=== PATIENT | male | born 1995 | race Caucasian/White ===

== ENCOUNTER 2018-08-08 15:05 | Emergency (ER) | payer OTHER ==
[2018-08-08 15:21] VITALS: BP 116/57; PULSE 67; TEMP 98.5; BMI 36.5
[2018-08-08] MEDS ORDERED: KETOROLAC TROMETHAMINE 30 MG/1 ML VIAL IM ONE (15:41)
[2018-08-08] MEDS ORDERED: KETOROLAC TROMETHAMINE 30 MG/1 ML VIAL ONE (15:44)
--- NOTE | 2018-08-08 15:46 | PDOC ---
History of Present Illness - General Chief Complaint: Injury Stated Complaint: FALL Time Seen by Provider: 08/08/18 15:13 History Source: Patient Exam Limitations: No Limitations - History of Present Illness Initial Comments: 08/08/18 15:42 22 year old with history of appendectomy presents with reports of back pain after fall onto back while walking down the steps today. Patient reports no head strike, no nausea, vomiting or loss of consciousness. Also states no bowel or bladder dysfunction or numbness and tingling in limbs. Occurred: reports: just prior to arrival Severity: reports: mild Pain Location: reports: back Method of Injury: Yes: fall Modifying Factors: improves with: immobilization Loss of Consciousness: no loss of consciousness Past History - Travel Traveled outside of the country in the last 30 days: Yes Close contact w/someone who was outside of country & ill: No - Past Medical History Allergies/Adverse Reactions: Allergies Allergy/AdvReac Type Severity Reaction Status Date / Time No Known Allergies Allergy Verified 08/08/18 15:15 Home Medications: Ambulatory Orders Ibuprofen 600 mg PO TID #21 tablet 08/08/18 Ibuprofen 600 mg PO TID #21 tablet 08/08/18 - Suicide/Smoking/Psychosocial Hx Smoking History: Never smoked Have you smoked in the past 12 months: No Information on smoking cessation initiated: No Hx Alcohol Use: No Drug/Substance Use Hx: No Trauma Specific PMHX - Complaint Specific PMHX Arthritis: No Back Injury: No Neck Injury: No Hx Sacro Iliac Joint Dysfunction: No Review of Systems - Review of Systems Able to Perform ROS?: Yes Is the patient limited Sinhala proficient: No Constitutional: No: Chills, Fever HEENTM: No: Nose Pain, Nose Congestion, Throat Pain Respiratory: No: Shortness of Breath, Stridor, Wheezing Cardiac (ROS): No: Lightheadedness, Chest Tightness ABD/GI: No: Poor Appetite, Poor Fluid Intake Musculoskeletal: Yes: Back Pain. No: Joint Pain, Muscle Pain Integumentary: No: Erythema Neurological: Yes: Numbness, Tingling. No: Paresthesia *Physical Exam - Vital Signs Last Vital Signs Temp Pulse Resp BP Pulse Ox 98.5 F 67 20 116/57 L 98 08/08/18 15:12 08/08/18 15:12 08/08/18 15:12 08/08/18 15:12 08/08/18 15:12 - Physical Exam General Appearance: Yes: Nourished, Appropriately Dressed HEENT: positive: TMs Normal, Pharynx Normal Neck: positive: Supple. negative: Lymphadenopathy (R), Lymphadenopathy (L) Respiratory/Chest: positive: Lungs Clear Cardiovascular: positive: Regular Rhythm, Regular Rate Musculoskeletal: negative: CVA Tenderness, CVA Tenderness (R), CVA Tenderness (L ) Extremity: positive: Normal Capillary Refill Neurologic: positive: Fully Oriented, Alert Medical Decision Making - Medical Decision Making 08/08/18 15:48 22 year old with history of appendectomy presents with reports of back pain after fall onto back while walking down the steps today. 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 D/c f/u with pmd of ortho with pain medication *DC/Admit/Observation/Transfer Diagnosis at time of Disposition: Back pain Qualifiers: Back pain location: thoracic back pain Chronicity: acute Back pain laterality: bilateral Qualified Code(s): M54.6 - Pain in thoracic spine - Discharge Dispostion Disposition: HOME Condition at time of disposition: Stable - Prescriptions Prescriptions: Ibuprofen 600 mg PO TID #21 tablet Ibuprofen 600 mg PO TID #21 tablet - Referrals Referrals: Lelo Garvey MD [Primary Care Provider] - - Patient Instructions Printed Discharge Instructions: DI for Low Back Pain Additional Instructions: Activity as tolerated Return to ed for numbness or tingling in lower limb or inability to hold urine or bowels - Post Discharge Activity Forms/Work/School Notes: Back to Work
== END 2018-08-08 18:38 | disposition home or self-care (01) ==
LOC: JERFT 15:05
PROC: 3E0233Z Introduction of Anti-inflammatory into Muscle, Percutaneous Approach (ICD-10-PCS; principal; 2018-08-08)
DX: M54.6 Pain in thoracic spine (principal); W10.8XXA Fall (on) (from) other stairs and steps, initial encounter; Y93.89 Activity, other specified; Y92.89 Other specified places as the place of occurrence of the external cause; Y99.8 Other external cause status
CPT/HCPCS: 72070-TC-FY; 72110-TC-FY; 96372; 99281-25

== ENCOUNTER 2020-02-20 17:45 | Emergency (ER) | payer OTHER ==
[2020-02-20 17:51] VITALS: BP 115/64; PULSE 76; TEMP 97.8; BMI 38.0
== END 2020-02-20 20:53 | disposition home or self-care (01) ==
LOC: JERFT 17:45
DX: H61.22 Impacted cerumen, left ear (principal); H92.02 Otalgia, left ear
CPT/HCPCS: 99282-25

== ENCOUNTER 2020-03-26 15:05 | Emergency (ER) | payer OTHER ==
[2020-03-26 15:36] VITALS: BMI 37.2
[2020-03-26] MEDS ORDERED: ACETAMINOPHEN 500 MG TABLET (FP) PO ONE (16:00)
[2020-03-26] MEDS ORDERED: IBUPROFEN 600 MG TABLET (FP) PO ONE (16:07)
[2020-03-26 17:26] VITALS: BP 124/74; PULSE 96; TEMP 99.2
== END 2020-03-26 17:24 | disposition home or self-care (01) ==
LOC: JER 15:05
DX: R07.0 Pain in throat (principal); R05 Cough; R50.9 Fever, unspecified
CPT/HCPCS: 71045-TC-FY; 87070; 87880; 99284-25

== ENCOUNTER 2020-09-22 20:12 | Emergency (ER) | payer BC, OTHER ==
[2020-09-22 20:18] VITALS: BP 120/78; PULSE 92; TEMP 98; BMI 38.7
[2020-09-22] MEDS ORDERED: SODIUM CHLORIDE 0.9% 500 ML INFUS.BAG IV ONE (22:03)
[2020-09-22] MEDS ORDERED: ACETAMINOPHEN 1000 MG/100 ML VIAL (NON FORMULARY) IVPB ONE (22:03)
[2020-09-22] MEDS ORDERED: ONDANSETRON 4 MG TABLET PO ONE (22:03)
[2020-09-22] MEDS ORDERED: ONDANSETRON 4 MG/2 ML VIAL ONE (22:21)
[2020-09-22] MEDS ORDERED: ACETAMINOPHEN INJECTION 100 ML IVPB ONE (22:21)
[2020-09-22 22:53] LABS: BASO % 0.8 % (0-2.0); EOS % 0.3 % (0-4.5); HEMATOCRIT 44.1 % (35.4-49); HEMOGLOBIN 15.3 GM/dL (11.7-16.9); LYMPH % 15.6 % (8-40); MCHC 34.7 g/dl (32.0-35.9); MEAN CELL VOLUME 83.6 fl (80-96); MEAN PLT VOLUME 9.6 fl (7.5-11.1); MONO % 5.5 % (3.8-10.2); NEUT % 77.8 % (42.8-82.8); PLATELET COUNT 274 10^3/uL (134-434); RBC 5.27 M/mm3 (4.00-5.60); RDW 13.1 % (11.9-15.9); WHITE BLOOD COUNT 11.3 K/mm3 (4.0-10.0)
[2020-09-22 23:20] LABS: ALBUMIN 4.9 g/dl (3.4-5.0); CALCIUM 9.4 mg/dL (8.5-10.1)
[2020-09-22 23:21] LABS: BLOOD UREA NITROGEN 6.9 mg/dL (7-18); MAGNESIUM 2.4 mg/dL (1.8-2.4)
[2020-09-22 23:24] LABS: CREATININE 0.8 mg/dL (0.55-1.3)
[2020-09-22 23:25] LABS: BILIRUBIN,TOTAL 0.7 mg/dL (0.2-1); TOT PROT 8.7 g/dl (6.4-8.2)
== END 2020-09-22 23:48 | disposition home or self-care (01) ==
LOC: JER 20:12
PROC: 3E0333Z Introduction of Anti-inflammatory into Peripheral Vein, Percutaneous Approach (ICD-10-PCS; principal; 2020-09-22)
DX: E66.9 Obesity, unspecified (principal); Z68.38 Body mass index [BMI] 38.0-38.9, adult
CPT/HCPCS: 36415; 80053; 83036; 83735; 84443; 85025; 99284-25; J0131